=== PATIENT | male | born 1940 | race Caucasian/White ===

== ENCOUNTER 2025-03-01 07:22 | Day surgery (SDC) | payer MEDICARE ==
[2025-02-22 10:11] LABS: BASOPHILS % (AUTO) 0.4 % (0-1); EOSINOPHILS # (AUTO) 0.2 X10'3 (0-0.9); LYMPHOCYTES # (AUTO) 1.9 X10'3 (1.1-4.8); LYMPHOCYTES % (AUTO) 22.5 % (21-51); MEAN CORPUSCULAR HEMOGLOBIN 34.3 PG (27.0-31.0); MEAN CORPUSCULAR VOLUME 101.1 FL (78-98); MEAN PLATELET VOLUME 7.4 FL (7.4-10.4); MONOCYTES # (AUTO) 0.8 X10'3 (0-0.9); MONOCYTES % (AUTO) 9.4 % (2-12); NEUTROPHILS # (AUTO) 5.4 X10'3 (1.8-7.7); NEUTROPHILS % (AUTO) 65.7 % (42-75); PRE OP HEMATOCRIT 44.2 % (42.0-52.0); PRE OP PLATELET COUNT 350 X10'3 (140-440); PRE OP WHITE BLOOD COUNT 8.3 10'3 (4.8-10.8); RED BLOOD COUNT 4.38 X10'6 (4.70-6.10); RED CELL DISTRIBUTION WIDTH 13.8 % (11.5-14.5)
--- NOTE | 2025-02-22 10:11 | ELECTROCARDIOGRAPH REPORT ---
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 GERRY Patricio Measurements Intervals Coleman Rate: 102 P: 78 NV: 182 QRS: 75 QRSD: 92 T: 62 QT: 331 QTc: 432 Interpretive Statements Sinus tachycardia Low voltage, precordial leads Anteroseptal infarct, old Electronically Signed On 02-23-2025 18:32:[address] GERRY Patricio Please click the below link to view image of tracing.
[2025-02-22 10:23] LABS: ALBUMIN 3.3 G/DL (3.4-5.0); ALBUMIN/GLOBULIN RATIO 0.9 (1.1-1.5); ALKALINE PHOSPHATASE 73 IU/L (46-116); BLOOD UREA NITROGEN 24 MG/DL (7-18); BUN/CREATININE RATIO 19.8 (10.0-20.0); CHLORIDE 104 MMOL/L (99-107); CREATININE 1.21 MG/DL (0.60-1.10); PRE OP ALT 26 U/L (30-65); PRE OP ANION GAP 5 (8-16); PRE OP AST 17 U/L (10-37); PRE OP BILIRUB, TOTAL 0.4 MG/DL (0.0-1.0); PRE OP GLUCOSE 105 MG/DL (70-104); PRE OP SODIUM 141 MMOL/L (135-145); TOTAL CARBON DIOXIDE 32.3 MMOL/L (24-32); TOTAL PROTEIN 6.8 G/DL (6.4-8.2); eGFR 57 ML/MIN
[~2025-03-01] VITALS: Ht 174 cm; Wt 59.1 kg
[2025-03-01] VITALS (8 sets, daily range): BP systolic 94–112; BP diastolic 52–71; PULSE 76–97; RESP 14–16; TEMP 98; O2SAT 94–99
[2025-03-01] MEDS: ceFAZolin 2gm in dextrose, iso 50 ML IV ONE (05:30)
[~2025-03-01 07:22] MED LIST: ACYC-128 PO; ATOR20TA66 PO; DOCUMENT DATE & TIME OF BETA-BLOCKER PO ONE; METO-395 PO; TAMS-55 PO
[2025-03-01] MEDS: ringers solution, lacted 1,000 ML IV SCH (09:00)
[2025-03-01] MEDS: famotidine 20mg tablet PO ONE (09:00)
[2025-03-01] MEDS ORDERED: BUPIVAcaine/PF 2.5mg/ml (0.25%) 10ml vial ONE (10:32)
[2025-03-01] MEDS ORDERED: LIDOcaine 2% (20mg/ml) 5ml vial ONE (10:32)
[2025-03-01] MEDS ORDERED: fentaNYL/PF 50MCG/1 ML 2ML syringe ONE (10:54)
[2025-03-01] MEDS ORDERED: midazolam 1 mg/ML 2ml injection ONE (10:55)
[2025-03-01] MEDS ORDERED: ondansetron/PF 4mg/2ml inj IV PRN (11:00)
[2025-03-01] MEDS ORDERED: proCHLORperazine 10 MG/2 ml inj IV PRN (11:00)
[2025-03-01] MEDS ORDERED: acetaminophen 1,000mg/100ml IV 100 ML IV PRN (11:00)
[2025-03-01] MEDS ORDERED: meperidine/PF 25mg/ml syringe IV PRN (11:00)
[2025-03-01] MEDS ORDERED: HYDROmorphone/PF 0.2 MG/ML SYRINGE IV PRN ×2 (11:00)
[2025-03-01] MEDS ORDERED: ringers solution, lacted 1,000 ML IV SCH (11:00)
[2025-03-01] MEDS ORDERED: morphine 4 MG/ML inj SYRINge IV PRN (11:00)
[2025-03-01] MEDS ORDERED: morphine 2 MG/ML inj. syringe IV PRN (11:00)
[2025-03-01] MEDS ORDERED: propofol inj 20 ML IV ONE (11:05)
--- NOTE | 2025-03-01 13:30 | OPERATIVE REPORT ---
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 Surgery is indicated to relieve symptoms. Consent was obtained from the patient and risks and benefits were explained. The patient was brought to the operating room where the arm was prepped and draped in usual manner. Local anesthetic was infiltrated just proximal to the carpal tunnel and the forearm tourniquet was inflated to 250 mmHg. A 3 cm incision was made in the palm ulnar to the thenar crease in line with the radial side of the ring finger dissecting down to the transverse carpal ligament. A straight incision was made in line with the skin incision in the transverse car pal ligament and the median nerve was identified in the carpal canal. The nerve was protected while the ligament was divided distally to the transverse arch and proximally to the wrist crease followed by division of the forearm fascia. The nerve was decompressed at this point so the incision was irrigated and closed with nylon suture. A sterile dressing was applied and the tourniquet was released. The hand perfused well and the patient was taken to the recovery room in stable condition. The patient tolerated the procedure well. RAMÓN SCOTT Jr., MD Mar 01, 2025 13:30
== END 2025-03-01 11:50 | disposition home or self-care (01) ==
LOC: PAS 07:22
PROVIDERS: ATTEND Orthopaedic Surgery Hand Surgery
DX: G56.01 Carpal tunnel syndrome, right upper limb (principal); J44.9 Chronic obstructive pulmonary disease, unspecified; E78.00 Pure hypercholesterolemia, unspecified; F17.210 Nicotine dependence, cigarettes, uncomplicated; Z79.899 Other long term (current) drug therapy; Z98.890 Other specified postprocedural states
CPT/HCPCS: 36415; 64721; 80053; 82948; 85025; 93005; A4215; A6449; J0690; J2003; J2250; J2704; J3010; J3490; J7030; J7120; Z7506; Z7512; Z7610